=== PATIENT | female | born 1945 | race Caucasian/White ===

== ENCOUNTER 2020-12-24 12:48 | Emergency (ER) | payer MEDICARE ==
[2020-12-24] MEDS ORDERED: Acetaminophen 500 MG TAB ONE (13:47)
--- NOTE | 2020-12-24 14:09 | RAD ---
CHEST 1 VIEW: Date: 12/24/2020 HISTORY: Cough. FINDINGS/IMPRESSION: Minimal increased bronchovascular markings noted bilaterally, including the left mid lung zone and ri ght base. These changes could represent minimal or early pneumonitis, including COVID-19 pneumonitis. Correlate with laboratory findings. Very minimal patchy parenchymal changes in the left mid lung zon e and right base, nonspecific. Correlate with laboratory findings. Consider short-term follow-up PA a nd lateral. POS: RRE
[2020-12-24] MEDS ORDERED: Sodium Chloride 0.9% 500 ML ONE (14:37)
[2020-12-24 14:41] LABS: ALT (SGPT) 30 U/L (8-55); AST (SGOT) 34 U/L (5-34); Alkaline Phosphatase 120 U/L (40-110); Anion Gap 16 mmol/L (10-20); BUN (Urea Nitrogen) 28 mg/dL (9.8-20.1); Bilirubin, Total 0.3 mg/dL (0.2-1.2); Calc. Creatinine Clearance 0 mL/min (70-130); Calcium 9.1 mg/dL (7.8-10.44); Carbon Dioxide 20 mmol/L (23-31); Chloride 99 mmol/L (98-107); Globulin 2.9 g/dL (2.4-3.5); Glucose 106 mg/dL (83-110); Potassium 4.4 mmol/L (3.5-5.1); Protein, Total 6.9 g/dL (5.8-8.1); Sodium 131 mmol/L (136-145)
[2020-12-24 14:48] LABS: Band 2 % (5-11); Hemoglobin 15.8 g/dL (12.0-16.0); Lymphocytes 19 % (21-51); MDiff Complete? YES; Mean Corpuscular HGB CONC 34.3 g/dL (32.0-36.0); Mean Corpuscular Hemoglobin 31.3 pg (27.0-31.0); Mean Corpuscular Volume 91.5 fL (78.0-98.0); Mean Platelet Volume 8.8 fL (7.4-10.4); Metamyelocyte 1 % (0-0); Monocytes 9 % (0-10); Myelocyte 1 % (0-0); Neutrophil 66 % (42-75); Platelet Count 186 thou/uL (130-400); Platelet Morphology Comment Appears Adequate; RBC Distribution Width 11.6 % (11.5-14.5); Reactive Lymphocytes 2 % (0-10); Red Blood Cell (RBC) Count 5.05 mill/uL (4.20-5.40); White Blood Cell (WBC) Count 5.1 thou/uL (4.8-10.8)
[2020-12-26 13:36] LABS: SARS-CoV-2 PCR by NAA DETECTED (NotDetected)
== END 2020-12-24 15:22 | disposition home or self-care (01) ==
LOC: NAV ERS 12:48
DX: U07.1 COVID-19 (principal); E78.5 Hyperlipidemia, unspecified; I10 Essential (primary) hypertension; H35.30 Unspecified macular degeneration; N28.9 Disorder of kidney and ureter, unspecified; Z79.899 Other long term (current) drug therapy
CPT/HCPCS: 71045; 80053; 83605; 84484; 85025; 87040; U0003; U0005; 87635; J7030

== ENCOUNTER 2020-12-27 15:47 | Emergency (ER) | payer MEDICARE ==
[2020-12-27 16:40] LABS: #Lymphocytes 0.8 thou/uL (1.20-3.40); #Monocytes 0.4 thou/uL (0.11-0.59); #Neutrophils 6.1 thou/uL (1.40-6.50); %Basophils 0.5 % (0.0-1.0); %Eosinophils 0.1 % (0.0-10.0); %Lymphocytes 10.3 % (21.0-51.0); %Monocytes 5.7 % (0.0-10.0); %Neutrophils 83.4 % (42.0-75.0); Hemoglobin 15.8 g/dL (12.0-16.0); Mean Corpuscular HGB CONC 32.9 g/dL (32.0-36.0); Mean Corpuscular Hemoglobin 30.4 pg (27.0-31.0); Mean Corpuscular Volume 92.5 fL (78.0-98.0); Mean Platelet Volume 8.4 fL (7.4-10.4); Platelet Count 274 thou/uL (130-400); RBC Distribution Width 11.8 % (11.5-14.5); Red Blood Cell (RBC) Count 5.21 mill/uL (4.20-5.40); White Blood Cell (WBC) Count 7.3 thou/uL (4.8-10.8)
[2020-12-27 16:54] LABS: ALT (SGPT) 34 U/L (8-55); AST (SGOT) 52 U/L (5-34); Albumin 3.6 g/dL (3.4-4.8); Alkaline Phosphatase 131 U/L (40-110); Anion Gap 20 mmol/L (10-20); BUN (Urea Nitrogen) 24 mg/dL (9.8-20.1); Bilirubin, Total 0.3 mg/dL (0.2-1.2); Calc. Creatinine Clearance 0 mL/min (70-130); Calcium 9.1 mg/dL (7.8-10.44); Carbon Dioxide 19 mmol/L (23-31); Chloride 102 mmol/L (98-107); Glucose 117 mg/dL (83-110); Potassium 4.8 mmol/L (3.5-5.1); Protein, Total 6.6 g/dL (5.8-8.1); Sodium 136 mmol/L (136-145)
--- NOTE | 2020-12-27 17:19 | RAD ---
AP CHEST: Indications: Dyspnea. Covid positive. Comparison: 12-24-2020 FINDINGS: There has been significant progression of bilateral lung infiltrates since 12-24-2020. There are now p atchy alveolar infiltrates seen throughout both lungs with areas of hazy interstitial and ground glas s opacity. Borderline cardiomegaly and mild vascular engorgement again noted. IMPRESSION: There has been progression of bilateral infiltrates. POS: AGW
[2020-12-27] MEDS ORDERED: Acetaminophen 500 MG TAB ONE (18:20)
[2020-12-27] MEDS ORDERED: Dexamethasone 4 mg/ml Vial ONE (19:07)
[2020-12-28] MEDS ORDERED: Acetaminophen 500 MG TAB ONE (07:43)
[2020-12-28] MEDS ORDERED: Dexamethasone 20 MG/5 ML VIAL ONE (07:43)
== END 2020-12-28 08:58 | disposition short-term general hospital (02) ==
LOC: NAV ERS 15:47
DX: U07.1 COVID-19 (principal); J12.82 Pneumonia due to coronavirus disease 2019; R09.02 Hypoxemia; E78.5 Hyperlipidemia, unspecified; I10 Essential (primary) hypertension; Z79.899 Other long term (current) drug therapy
CPT/HCPCS: 71045; 80053; 83605; 84484; 85025; 93005; 94640; 94760; 96374; 96376; J1100; J7620